=== PATIENT | female | born 1985 | race Caucasian/White ===

== ENCOUNTER 2018-05-22 20:08 | Emergency (ER) | payer SELFPAY ==
--- OUTSIDE RECORDS SUMMARY | 2018-05-22 20:10 | XMS REPORT ---
:1985 [facility] Address [address] [place] [address] [address] [place] [address] Care Team Providers Name Role Phone DR POLA FIGUEROA Unavailable Unavailable ITALIA BRINK Unavailable Unavailable DARIANA, DR LAKHANI Unavailable Unavailable ENTIA, DR MCPHERSON Unavailable Unavailable BA, DR GARAY Unavailable Unavailable MARKO, DR GERARD Unavailable Unavailable , DR GUZMAN Unavailable Unavailable Problems This patient has no known problems. Allergies, Adverse Reactions, Alerts This patient has no known allergies or adverse reactions. Medications This patient has no known medications. Encounters Start End Encounter Admission Attending Care Care Encounter Date/Time Date/Time Type Type Clinicians Facility Department ID 2018-03-29 2018-03-30 Outpatient E [facility] [id number] 19:28:00 23:11:00 POLA 2018-03-12 2018-03-13 Outpatient E [facility] [id number] 22:28:00 01:55:00 ITALIA 2018-03-10 2018-03-10 Emergency E [facility]ES[facility] [id number] 15:09:00 19:50:00 2018-02-23 2018-02-23 Emergency E ALEJA [facility] [id number] 00:26:00 01:22:00 VIDA 2017-12-18 2017-12-18 Emergency E TANISHA [facility] [id number] 19:54:00 22:51:00 2017-10-21 2017-10-21 Emergency E MARKO [facility] [id number] 21:40:00 22:52:00 MOUSTAPHA 2017-05-25 2017-05-25 Emergency E SHEIKH [facility] [id number] 00:07:00 00:56:00 WASIM Results Test Description Test Time Test Comments Text Results Atomic Results Result Comments PROTHROMBIN TIME i-STAT OW 2018-03-30 06:44:00 Test Item Value Reference Range Comments PT (test code=PT1) <10.0 s 10.0-13.0 INR (test code=INR) <0.9 INRH (test code=INRH) SUGGESTED THERAPEUTIC RANGE FOR INR: 2.5 - 3.5 For Patients with Prosthetic Valves or Patients with recurrent Thromboembolic Events 2.0 - 3.[address] CHEST W/ CONTRAST *OW*2018-03-29 22:43:55Examination: Chest CT with contrastLocation code: V1Eawdffsxvi: NoneTechnique:Axial postcontrast contiguous images were obtained through the chest followedby coronal and sagittal reformations. One or more of the following dosereduction techniques were used: Automated exposure control, adjustment of themA and or KV according to patient size, and/or utilization of iterativereconstruction technique.Creatinine 1.0, 82 cc Omnipaque 300Discussion:Clinical history is remarkable for dyspnea. Thyroid gland, trachea, and majorbronchi are within normal limits. There are no pathologically enlarged lymphnodes present within the mediastinum or axilla.No consolidation, effusion, or pneumothorax is appreciated.Fatty infiltration of the liver is present. Cystic changes present involvingthe posterior right lobe segment 7.Small hiatal hernia is present.No lytic or blastic lesions are present within the osseous structures.Impression: 1. No acute cardiopulmonary abnormality.TROPONIN I i-STAT OW2018-03-29 21:45 :00 Test Item Value Reference Range Comments TROPONIN I (test code=A84) 0.000 ng/mL 0.000-0.045 CHEM8+ i-STAT OW2018-03-29 21:34:00 Test Item Value Reference Range Comments SODIUM (test code=RUYB) 141 mmol/L 138-146 POTASSIUM (test code=KI) 4.1 mmol/L 3.5-4.9 CHLORIDE (test code=CLI) 102 mmol/L 98-109 CA IONIZED (test code=ICAI) 1.18 mmol/L 1.12-1.32 GLUCOSE (test code=GLUI) 81 mg/dL 75-100 TCO2 (test code=TCO2) 28 mmol/L 24-29 BUN (test code=BUN1) 18 mg/dL 8-26 CREATININE (test code=CREAI) 1.0 mg/dL 0.6-1.3 ANION GAP (test code=GANG) 17.0 mmol/L URINE OW2018-03-29 20:52:00 Test Item Value Reference Range Comments PREG UR (test code=PGU) NEGATIVE NEGATIVE CBC (INCLUDES AUTOMATED DIFFERENTIAL) *2018-03-29 20:27:00 Test Item Value Reference Range Comments WBC (test code=WBC) 5.4 10\S\3/uL 4.5-11.0 RBC (test code=RBC) 4.65 10\S\6/uL 4.30-5.70 HGB (test code=HBG) 13.3 g/dL 12.0-15.5 HCT (test code=HCT) 40.3 % 35.0-44.0 MCV (test code=MCV) 86.7 fL 81.0-99.0 MCH (test code=MCH) 28.6 pg 27.0-31.0 MCHC (test code=MCHC) 33.0 g/dL 32.0-36.0 RDW (test code=RDW) 12.8 % 11.5-14.5 PLT (test code=PLT) 326 10\S\3/uL 130-400 MPV (test code=MPV) 7.9 fL 9.4-12.4 NEUTROP # (test code=NE#) 2.7 10\S\3/uL 1.6-8.0 LYMPH # (test code=LY#) 2.1 10\S\3/uL 1.1-3.5 MID # (test code=GMID#) 0.6 10\S\3/uL 0.0-1.1 GRA % (test code=GRA%) 50.0 % 35.0-73.0 LYMPH % (test code=GLY%) 39.4 % 20.0-55.0 MID % (test code=GMID%) 10.6 % 0.0-10.0 PROTHROMBIN TIME i-STAT OW2018-03-13 14:07:00 Test Item Value Reference Range Comments PT (test code=PT1) 12.2 s 10.0-13.0 INR (test code=INR) 1.0 INRH (test code=INRH) SUGGESTED THERAPEUTIC RANGE FOR INR: 2.5 - 3.5 For Patients with Prosthetic Valves or Patients with recurrent Thromboembolic Events 2.0 - 3.0 For Most Other Applications CBC (INCLUDES AUTOMATED DIFFERENTIAL) *2018-03-13 14:02:00 Test Item Value Reference Range Comments WBC (test code=WBC) 2.6 10\S\3/uL 4.5-11.0 RBC (test code=RBC) 6.63 10\S\6/uL 4.30-5.70 HGB (test code=HBG) 18.6 g/dL 12.0-15.5 HCT (test code=HCT) 57.3 % 35.0-44.0 MCV (test code=MCV) 86.4 fL 81.0-99.0 MCH (test code=MCH) 28.1 pg 27.0-31.0 MCHC (test code=MCHC) 32.5 g/dL 32.0-36.0 RDW (test code=RDW) 12.6 % 11.5-14.5 PLT (test code=PLT) 117 10\S\3/uL 130-400 MPV (test code=MPV) 8.7 fL 9.4-12.4 NEUTROP # (test code=NE#) 1.0 10\S\3/uL 1.6-8.0 LYMPH # (test code=LY#) 1.3 10\S\3/uL 1.1-3.5 MID # (test code=GMID#) 0.3 10\S\3/uL 0.0-1.1 GRA % (test code=GRA%) 39.8 % 35.0-73.0 LYMPH % (test code=GLY%) 49.0 % 20.0-55.0 MID % (test code=GMID%) 11.2 % 0.0-10.0 U/S VENOUS DOPPLER LT UPPER EXT *OW*2018-03-13 00:30:16AFTER HOURS SERVICE ON: 12:30 AMLeft Upper Extremity Venous Duplex Doppler ExaminationLocation Code N63Zsleqtz: M79.89: OTHER SPECIFIED SOFT TISSUE DISORDERSTechnique: Real- time hernandez scale, Doppler spectral analysis and Doppler colorflow evaluation was performed using a dedicated transducer. Graded compressionwith augmentation were performed. Findings: Upper extremity veins were sampled including the jugular, subclavian, axillary,brachial, basilic and cephalic veins. No echogenic filling defects are seen to suggest deep venous thrombosis. Thereis normal response to compression. There are normal venous waveforms. Impression: No sonographic evidence of DVT in the imaged vessels.U/S [id number] 19:45: 12EXAM: US PELVIS TRANSABDOMINALEXAM: US PELVIS TRANSVAGINALDATE: 03/10/2018 6:04 PM INDICATION: Pelvic pain, concern for ovarian torsion ADDITIONAL INFORMATION: 32-year-old G6 P O5YAJAMYWBTN: None. TECHNIQUE: Multiplanar grayscale and color Doppler ultrasound of the pelviswere obtained:Transabdominally through a distended urinary bladder.Transvaginally postvoid.LOCATION: [id number]: Uterus/ Myometrium:Size: 7.4 x 5.0 x 6.3 cmOrientation: AntevertedEchogenicity: Normal.Masses: None.Cervix: Normal.Endometrium: NormalThickness: 0.9 cmCysts/ Masses: None.Right ovary:Size: 4.4 x 4.2 x 4.0 cmCysts/Masses:There is a hypoechoic cyst with reticulated echogenic structuresinternally measuring 4.0 x 3.6 x 3.3cm.Arterial and Doppler waveforms are demonstratedLeft ovary: Size: 2.9 x 1.8 x 1.9 cmCysts/Masses: None.Arterial and Doppler waveforms are demonstratedAdnexa: Normal. Free fluid: None.Other: None.IMPRESSION:1. Normal Doppler waveforms are demonstrated in each ovary.2. Right ovarian hemorrhagic cyst.CT ABDOMEN AND PELVIS WITH [id number] 17:48:38EXAM: CT ABDOMEN AND PELVIS WITH CONTRASTDATE: 03/10/2018 3:39 PM INDICATION: Abdominal pain ADDITIONAL INFORMATION: None.COMPARISON: None.TECHNIQUE: Volumetric CT acquisition of the abdomen and pelvis after theintravenous administration contrast. Axial, coronal and sagittalreconstructions.Postcontrastphases: Venous and delayed.IV contrast: 98 mL Omnipaque 300Enteric contrast: None.DLP: 1886 mGy -cmLOCATION: [id number]: Lines, tubes and hardware: None.Lower thorax: Clear.Liver: There is a lobulated lesion in the posterior aspect of the right hepaticlobe measures 1.8 x 3.0 cm. It is new compared to 2012.Biliary tree: No intra- or extrahepatic biliary ductal dilation.Gallbladder: Normal. No CT evidence of gallstones.Pancreas: Normal.Spleen: Normal.Adrenals: Normal.Kidneys and ureters: Normal.Bladder: Normal.Reproductive organs: There is a cyst in the right ovary measuring 4.0 x 3.3 cm.Gastrointestinal tract: Normal caliber.Appendix: Normal.Peritoneum and retroperitoneum: No ascites or free air. No other fluidcollection.Lymph nodes: Normal.Vasculature: Normal.Bones: There is moderate levoconvex scoliotic curvature of the lumbar spine.Soft tissues: Normal.IMPRESSION: 1. No acute abnormality2. A lobulated hypodense lesion at the posterior aspect of the right hepaticlobe measuring 3 x 1.8 cm isnew compared to 2012. The lesion hascharacteristics compatible with hepatic cyst. Given that the lesion is new, 3month interval follow up with abdominal ultrasound would be recommended.3. Right ovarian cyst.RECOMMENDATIONS: None.CBC (INCLUDES AUTOMATED DIFFERENTIAL)2018-03-10 16:15:00 Test Item Value Reference Range Comments WBC (test code=WBC) 6.3 10\S\3/uL 4.5-11.0 RBC (test code=RBC) 4.98 10\S\6/uL 4.30-5.70 HGB (test code=HBG) 14.2 g/dL 12.0-15.5 HCT (test code=HCT) 43.4 % 35.0-44.0 MCV (test code=MCV) 87.1 fL 81.0-99.0 MCH (test code=MCH) 28.5 pg 27.0-31.0 MCHC (test code=MCHC) 32.7 g/dL 32.0-36.0 RDW (test code=RDW) 13.1 % 11.5-14.5 PLT (test code=PLT) 273 10\S\3/uL 130-400 MPV (test code=MPV) 10.5 fL 9.4-12.4 NEUTROP # (test code=NE#) 5.1 10\S\3/uL 1.6-8.0 LYMPH # (test code=LY#) 0.7 10\S\3/uL 1.1-3.5 MONOCYTE # (test code=MO#) 0.4 10\S\3/uL 0.0-1.1 EOSINOPH # (test code=EO#) 0.1 10\S\3/uL 0.0-0.7 BASOPHIL # (test code=BA#) 0.0 10\S\3/uL 0.0-0.3 IG # (test code=IG#) 0.02 10\S\3/uL 0.00-0.06 NRBC # (test code=NRBC#) 0.00 10\S\3/uL 0.00-0.01 NEUTROPH % (test code=NE%) 80.4 % 35.0-73.0 LYMPH % (test code=LY%) 11.1 % 20.0-55.0 MONO % (test code=MO%) 7.0 % 2.5-10.0 EOSINOPH % (test code=EO%) 1.0 % 0.0-5.0 BASOPHIL % (test code=BA%) 0.2 % 0.0-2.0 IG % (test code=IG%) 0.3 % 0.0-0.8 NRBC% (test code=NRBC%) 0.0 % 0.0-0.2 MANDIFF (test code=MDIFF) NO NO RBC MORPH (test code=RBCMOR) NORMAL URINALYSIS WITH [id number] 16:02:00 Test Item Value Reference Range Comments COLOR (test code=COLU) YELLOW YELLOW CLARITY (test code=CLA) HAZY CLEAR GLUCOSE UR (test code=UA GLUCOSE) NEGATIVE NEGATIVE BILI UR (test code=BILE) NEGATIVE NEGATIVE KETONES UR (test code=MURIEL) 1+ NEGATIVE SP GRAVITY (test code=SPGR) 1.023 1.005-1.030 PH UR (test code=PH) 6.5 4.5-8.0 PROTEIN UR (test code=PU) NEGATIVE NEGATIVE UROBIL UR (test code=UROQ) 1.0 EU/dL 0.2-1.0 NITRITE UR (test code=NITRITE) NEGATIVE NEGATIVE BLOOD UR (test code=UA BLOOD) NEGATIVE NEGATIVE LEUK ES UR (test code=LEUK) 1+ NEGATIVE WBC UR (test code=UWBC) 5 /HPF 0-5 RBC UR (test code=URBC) 4 /HPF 0-2 EPITH UR (test code=UEPC) MODERATE /LPF FEW BACTERIA UR (test code=UBACT) FEW /HPF NONE CAST UR (test code=CAST) /LPF NONE CRYSTAL UR (test code=CRYU) / LPF NONE MUCUS UR (test code=MUC) / HPF NONE AMORPH UR (test code=OMI) / HPF NONE TRICH UR (test code=UTRICH) /HPF NONE YEAST UR (test code=UY) /HPF NONE SPERM UR (test code=USPERM) /HPF NONE URINE [id number] 15:57:00 Test Item Value Reference Range Comments PREG UR (test code=PGU) NEGATIVE NEGATIVE XR ANKLE RIGHT COMPLETE 3 VIEWS 2018-02-23 01:19:57RIGHT ANKLE RADIOGRAPHS, 3 VIEWSLOCATION: R16.INDICATION: [id number]: Ankle pain.COMPARISON: None.TECHNIQUE: AP, oblique, and lateral radiographs of the right ankle.FINDINGS :There is no acute fracture or dislocation. The joint spaces are maintained.IMPRESSION:No acute osseous abnormality.U/S VENOUS DOPPLER LT UPPER EXT2017-12-18 22:41:35EXAM: U/S VENOUS DOPPLER LT UPPER EXTHISTORY: [id number]: Arm swellingTECHNIQUE: Multiplanar real-time ultrasonography of the left upper extremityvenous system using hernandez-scale imaging, supplementedby Doppler, augmentation,and compression maneuvers as needed.COMPARISON: None.FINDINGS: Internal jugular vein: PatentSubclavian vein: Patent Axillary vein: PatentBrachial vein: PatentCephalic vein: PatentBasilic vein: Patent and compressibleRadial vein: PatentUlnar vein: PatentVenous compressibility: NormalWaveform response to augmentation: NormalIMPRESSION:No evidence of deep vein thrombosisD-DIMER 2017-12-18 20:54:00 Test Item Value Reference Range Comments D-DIMER (test code=DDI) <200 ng/mL D-DU 0-234 D-DIMER COMMENT (test *Level to rule out DVT or PE: code=DDCOM) <235 ng/mL D-DU* PRO TIME AND PTT *WW*2017-12-18 20:49:00 Test Item Value Reference Range Comments PT (test code=TT) 11.2 s 9.8-13.6 INR (test code=INR) 1.0 INRH (test code=INRH) SUGGESTED THERAPEUTIC RANGE FOR INR: 2.5 - 3.5 For Patients with Prosthetic Valves or Patients with recurrent Thromboembolic Events 2.0 - 3.0 For Most Other Applications PTT (test code=PTT) 27.3 s 20.2-38.0 PTTH (test code=PTTH) To monitor the effectiveness of heparin, we offer the Anti-Xa (Heparin Assay). It can be used for either unfractionated or LMW Heparin. Order Code is ANTI-XA COMPREHENSIVE METABOLIC TOMLIN *WW*2017-12-18 20:40:00 Test Item Value Reference Range Comments GLUCOSE (test code=06D) 94 mg/dL 75-100 SODIUM (test code=01A) 138 mmol/L 136-145 POTASSIUM (test code=01B) 3.8 mmol/L 3.6-5.1 CHLORIDE (test code=04A) 104 mmol/L 98-107 CO2 (test code=02A) 28 mmol/L 22-32 ANION GAP (test code=ANG) 9.8 mmol/L BUN (test code=05D) 17 mg/dL 7-18 CREATININE (test code=03E) 0.9 mg/dL 0.4-1.1 BUN/CREA (test code=BCR) 19 12-20 CALCIUM (test code=09D) 8.7 mg/dL 8.3-9.5 BILI TOTAL (test code=11A) 0.2 mg/dL 0.2-1.0 PROTEIN (test code=07D) 8.0 g/dL 6.4-8.2 ALBUMIN (test code=08D) 4.2 g/dL 3.5-4.8 GLOBULIN (test code=GLB) 3.8 g/dL 1.5-3.8 ALB/GLOB (test code=AGRR) 1.1 1.0-2.6 ALK PHOS (test code=35A) 79 IU/L 42-121 AST (test code=30A) 14 IU/L <=42 ALT (test code=31A) 20 IU/L <=78 CBC (INCLUDES AUTOMATED DIFFERENTIAL)*[id number] 20:25:00 Test Item Value Reference Range Comments WBC (test code=WBC) 7.8 10\S\3/uL 4.5-11.0 RBC (test code=RBC) 4.30 10\S\6/uL 4.30-5.70 HGB (test code=HBG) 12.4 g/dL 12.0-15.5 HCT (test code=HCT) 38.1 % 35.0-44.0 MCV (test code=MCV) 88.6 fL 81.0-99.0 MCH (test code=MCH) 28.8 pg 27.0-31.0 MCHC (test code=MCHC) 32.5 g/dL 32.0-36.0 RDW (test code=RDW) 13.4 % 11.5-14.5 PLT (test code=PLT) 275 10\S\3/uL 130-400 MPV (test code=MPV) 10.7 fL 9.4-12.4 NEUTROP # (test code=NE#) 4.8 10\S\3/uL 1.6-8.0 LYMPH # (test code=LY#) 2.0 10\S\3/uL 1.1-3.5 MONOCYTE # (test code=MO#) 0.7 10\S\3/uL 0.0-1.1 EOSINOPH # (test code=EO#) 0.2 10\S\3/uL 0.0-0.7 BASOPHIL # (test code=BA#) 0.1 10\S\3/uL 0.0-0.3 IG # (test code=IG#) 0.02 10\S\3/uL 0.00-0.06 NRBC # (test code=NRBC#) 0.00 10\S\3/uL 0.00-0.01 NEUTROPH % (test code=NE%) 61.7 % 35.0-73.0 LYMPH % (test code=LY%) 25.7 % 20.0-55.0 MONO % (test code=MO%) 8.6 % 2.5-10.0 EOSINOPH % (test code=EO%) 3.1 % 0.0-5.0 BASOPHIL % (test code=BA%) 0.6 % 0.0-2.0 IG % (test code=IG%) 0.3 % 0.0-0.8 NRBC% (test code=NRBC%) 0.0 % 0.0-0.2 MANDIFF (test code=WMDIFF) NO NO RBC MORPH (test code=WRBCMOR) NORMAL XR FOOT LEFT COMPLETE 3 [id number] 22:21:34XR FOOT LEFT COMPLETE 3 VIEWSLocation:O55Qlgyo hours services provided10/21/2017 10:20 PMIndication: Lfoot pain; fellComparison:Not availableFindings:Mild calcaneal spurring. No acute fracture or dislocation is seen. Thejoint spaces appear preserved. Bony mineralization appears normal. Noradiopaque foreign body.Impression:No acute bony abnormality.XR CHEST 2 VIEW *WW*2017-01-22 00:15:12Exam: Chest 2 viewsLocation: [id number]: cough ans sobComparison: NoneFindings:The lungs are clear. No infiltrate or effusion is seen. The pulmonaryvasculature is normal. The heart size is normal. The mediastinal silhouette isunremarkable. The bony thorax is intact with a dextroscoliosis noted.Impression:No acute disease.
--- OUTSIDE RECORDS SUMMARY | 2018-05-22 20:10 | XMS REPORT | Clinical Summary ---
:1985 Author Organization [facility] Address [address] [place] [address] Care Team Providers Name Role Phone Mignon Hancock DO Primary Care Provider Allergies Active Allergy Reactions Severity Noted Date Comments Azithromycin 03/16/2018 Hydromorphone Itching 03/16/2018 Current Medications Prescription Sig. Disp. Refills Start Date End Date Status acetaminophen-codeine Take 1 tablet by 12 tablet 0 03/17/2018 03/24/2018 (TYLENOL WITH CODEINE mouth every 6 #3) 300-30 mg per (six) hours as tablet needed for moderate pain for up to 7 days. Active Problems Not on file Encounters Date Type Specialty Care Team Description 03/16/2018 - Emergency Emergency Medicine Madhuri Hernandez Contusion of left 03/17/2018 DO Araceli upper extremity, initial encounter (Primary Dx) after 05/21/2017 Social History Tobacco Use Types Packs/Day Years Used Date Never Smoker Smokeless Tobacco: Never Used Alcohol Use Drinks/Week oz/Week Comments Yes socially Sex Assigned at Date Recorded Not on file Last Filed Vital Signs Vital Sign Reading Time Taken Blood Pressure 122/87 03/17/2018 1:07 AM CDT Pulse 85 03/17/2018 1:07 AM CDT Temperature 35.7 C (96.2 F) 03/16/2018 10:31 PM CDT Respiratory Rate 16 03/17/2018 1:07 AM CDT Oxygen Saturation 99% 03/17/2018 1:07 AM CDT Inhaled Oxygen Concentration - - Weight - - Height 167.6 cm (5' 6") 03/16/2018 10:20 PM CDT Body Mass Index - - Plan of Treatment Health Maintenance Due Date Last Done Comments CERVICAL CANCER SCREENING 2005 INFLUENZA VACCINE 05/07/2018 Procedures Procedure Name Priority Date/Time Associated Diagnosis Comments DUPLEX VENOUS STAT 03/17/2018 12:18 AM Results for this UPPER EXTREMITY CDT procedure are in LEFT the results section. after 05/21/2017 Results PV Duplex Venous Upper Extremity (03/17/2018 12:18 AM) Narrative Performed At US DUPLEX VENOUS UPPER EXTREMITY LEFT [facility] CLINICAL INDICATION:lue bruisingupper arm and ac spacefrom iv's...now with pain worsening COMPARISON:None. COMMENTS: Sonographic evaluation of the left upper extremity was performed utilizing compression sonography and color Doppler interrogation. The left internal jugular vein, subclavian vein, axillary vein, brachial veins, basilic vein and cephalic vein are normal in course and caliber with normal color Doppler signal. There is normal compressibility of these vessels and flow variation where interrogated. Visualized veins in the forearm are unremarkable without thrombosis. The contralateral subclavian vein was also interrogated and demonstrates appropriate Doppler signal. There is an ill-defined echogenic area within the soft tissues in the area of bruising that measures 2.1 x 0.8 x 1.5 cm in size. This most likely represents a small, subcutaneous hematoma. IMPRESSION: 1. No sonographic evidence of deep venous thrombosis in the left upper extremity. 2. Ill-defined echogenic area within the region of bruising, measuring 2.1 x 0.8 x 1.5 cm in size and likely representing a small subcutaneous hematoma. [facility]-[id number] Procedure Note Interface, Radiology Results Incoming - 03/17/2018 12:25 AM CDT US DUPLEX VENOUS UPPER EXTREMITY LEFT CLINICAL INDICATION: lue bruising upper arm and ac space from iv's...now with pain worsening COMPARISON: None. COMMENTS: Sonographic evaluation of the left upper extremity was performed utilizing compression sonography and color Doppler interrogation. The left internal jugular vein, subclavian vein, axillary vein, brachial veins , basilic vein and cephalic vein are normal in course and caliber with normal color Doppler signal. There is normal compressibility of these vessels and flow variation where interrogated. Visualized veins in the forearm are unremarkable without thrombosis. The contralateral subclavian vein was also interrogated and demonstrates appropriate Doppler signal. There is an ill-defined echogenic area within the soft tissues in the area of bruising that measures 2.1 x 0.8 x 1.5 cm in size. This most likely represents a small, subcutaneous hematoma. IMPRESSION: 1. No sonographic evidence of deep venous thrombosis in the left upper extremity. 2. Ill-defined echogenic area within the region of bruising, measuring 2.1 x 0.8 x 1.5 cm in size and likely representing a small subcutaneous hematoma. [facility]-[id number] Performing Organization Address City/State/Zipcode Phone Number [facility] [address] [place] [address] after 05/21/2017
[2018-05-22] MEDS ORDERED: HYDROCOD 2.5mg-ACETAMIN 108mg/5mL Soln ONE (21:45)
[2018-05-22] MEDS ORDERED: IBUPROFEN 400 MG TAB ONE (21:46)
[2018-05-22 22:06] LABS: Urine Blood NEGATIVE (NEG); Urine Glucose NEGATIVE (NEG); Urine Protein NEGATIVE (NEG); Urine Specific Gravity >1.030 (1.005-1.030); Urine pH 5.5 (5.0-7.0)
--- NOTE | 2018-05-22 22:37 | ER ---
Nurse's Notes [facility] Name: Natali Sheridan Age: 32 yrs Sex: Female : 1985 Arrival Date: 05/22/2018 Time: 20:08 Bed 19 Private MD: Diagnosis: Otitis media, unspecified, left ear Presentation: 05/22 20:15 Presenting complaint: Patient states: Left ear pain for 3 days. Transition of care: aj patient was not received from another setting of care. Onset of symptoms was May 19, 2018. Risk Assessment: Do you want to hurt yourself or someone else? Patient reports no desire to harm self or others. Initial Sepsis Screen: Does the patient meet any 2 criteria? No. Patient's initial sepsis screen is negative. Does the patient have a suspected source of infection? No. Patient's initial sepsis screen is negative. Care prior to arrival: None. 20:15 Method Of Arrival: Ambulatory 20:15 Acuity: DANIELE 4 20:15 Acuity: DANIELE 5 Triage Assessment: 20:17 General: Appears in no apparent distress. comfortable, Behavior is calm, cooperative, aj appropriate for age. Pain: Complains of pain in left ear. EENT: Reports pain in left ear. Neuro: Level of Consciousness is awake, alert, obeys commands, Oriented to person, place, time, situation, Appropriate for age. Respiratory: Airway is patent Respiratory effort is even, unlabored, Respiratory pattern is regular, symmetrical. Derm: Skin is intact, is healthy with good turgor, Skin is pink, warm \T\ dry. normal. 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 - Social history:: Smoking status: Patient/guardian denies using tobacco. - Ebola Screening: : Patient negative for fever greater than or equal to 101.5 degrees Fahrenheit, and additional compatible Ebola Virus Disease symptoms Patient denies exposure to infectious person Patient denies travel to an Ebola-affected area in the 21 days before illness onset No symptoms or risks identified at this time. Screenin:48 Abuse screen: Denies threats or abuse. Denies injuries from another. Nutritional bs1 screening: No deficits noted. Tuberculosis screening: No symptoms or risk factors identified. Fall Risk None identified. Assessment: 20:25 General: Appears in no apparent distress. uncomfortable, Behavior is calm, cooperative, bs1 appropriate for age. Pain: Complains of pain in left ear, throat. Neuro: Level of Consciousness is awake, alert, obeys commands, Oriented to person, place, time, situation, Appropriate for age. Cardiovascular: Heart tones S1 S2 present. Respiratory: Airway is patent. GI: No signs and/or symptoms were reported involving the gastrointestinal system. : No signs and/or symptoms were reported regarding the genitourinary system. EENT: Ear canal mild redness noted to left ear, patient reports pain to left ear. Throat is reddened. 21:30 Reassessment: Patient appears in no apparent distress at this time. Patient and/or bs1 family updated on plan of care and expected duration. Pain level reassessed. Patient is alert, oriented x 3, equal unlabored respirations, skin warm/dry/pink. Patient c/o pain in throat/ear. 22:55 Reassessment: Patient appears in no apparent distress at this time. Patient and/or bs1 family updated on plan of care and expected duration. Pain level reassessed. Patient is alert, oriented x 3, equal unlabored respirations, skin warm/dry/pink. Patient received Augmentin 875, discharge papers given. Informed patient that we will keep her here for about 15 more minutes to make sure she does not have a reaction to medication. 23:18 Reassessment: No reaction occurred. bs1 Vital Signs: 20:17 BP 140 / 88; Pulse 95; Resp 16; Temp 98.2; Pulse Ox 96% on R/A; Weight 90.72 kg; Height aj 5 ft. 6 in. (167.64 cm); 21:17 BP 156 / 90; Pulse 81; Resp 16 S; Pulse Ox 98% on R/A; bs1 22:17 BP 148 / 88; Pulse 80; Resp 16; Pulse Ox 100% on R/A; bs1 23:17 BP 130 / 94; Pulse 81; Resp 16; Temp 98.0(O); Pulse Ox 99% on R/A; Pain 4/10; bs1 20:17 Body Mass Index 32.28 (90.72 kg, 167.64 cm) armen ED Course: 20:08 Patient arrived in ED. ds1 20:16 Triage completed. aj 20:17 Arm band placed on right wrist. Patient placed in an exam room. aj 20:26 Corrine Diana, LEXIE is Primary Nurse. bs1 20:48 Patient has correct armband on for positive identification. Bed in low position. Call bs1 light in reach. Side rails up X 1. Pulse ox on. NIBP on. 21:18 Suraj Villalta PA is PHCP. cp 21:18 Suraj Garza MD is Attending Physician. cp 22:59 No provider procedures requiring assistance completed. Patient did not have IV access bs1 during this emergency room visit. Administered Medications: 22:12 Drug: Ibuprofen 800 mg Route: PO; bs1 23:18 Follow up: Response: No adverse reaction bs1 22:12 Drug: Lortab Liquid 15 ml Route: PO; bs1 23:18 Follow up: Response: No adverse reaction bs1 22:56 Drug: Augmentin 875 mg Route: PO; bs1 23:18 Follow up: Response: No adverse reaction bs1 Outcome: 22:36 Discharge ordered by MD. cp 23:19 Patient left the ED. bs1 Signatures: Lisa Knight, RN RN Nishi Kerns ds1 Suraj Villalta PA PA Corrine Morrison, LEXIE RN bs1
--- NOTE | 2018-05-22 22:37 | EDPHYS ---
Physician Documentation [facility] Name: Natali Sheridan Age: 32 yrs Sex: Female : 1985 Arrival Date: 05/22/2018 Time: 20:08 Bed 19 Private MD: ED Physician Suraj Garza HPI: 05/22 21:25 This 32 yrs old Female presents to ER via Ambulatory with complaints of Ear cp Pain, Sore Throat. 21:25 The patient presents with pain, that is acute, tenderness. The complaints affect the cp left ear. 21:25 Onset: The symptoms/episode began/occurred 3 day(s) ago. cp 21:25 Associated signs and symptoms: Pertinent positives: sore throat, Pertinent negatives: cp cough, fever, sinus trouble, vomiting. Severity of symptoms: in the emergency department the symptoms are unchanged despite home interventions. 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 - Social history:: Smoking status: Patient/guardian denies using tobacco. - Ebola Screening: : Patient negative for fever greater than or equal to 101.5 degrees Fahrenheit, and additional compatible Ebola Virus Disease symptoms Patient denies exposure to infectious person Patient denies travel to an Ebola-affected area in the 21 days before illness onset No symptoms or risks identified at this time. ROS: 21:30 Constitutional: Negative for body aches, chills, fever, poor PO intake. cp 21:30 Eyes: Negative for injury, pain, redness, and discharge. cp 21:30 ENT: Positive for ear pain, sore throat, Negative for drainage from ear(s), sinus pain, difficulty swallowing, difficulty handling secretions. 21:30 Neck: Negative for pain with movement, pain at rest, stiffness. 21:30 Cardiovascular: Negative for chest pain. 21:30 Respiratory: Negative for cough, shortness of breath, wheezing. 21:30 Abdomen/GI: Negative for abdominal pain, nausea, vomiting, and diarrhea. 21:30 Skin: Negative for cellulitis, rash. 21:30 Neuro: Negative for altered mental status, headache, weakness. 21:30 All other systems are negative. Exam: 21:35 Constitutional: The patient appears in no acute distress, alert, awake, non-toxic, well cp developed, well nourished, uncomfortable. 21:35 Head/Face: Normocephalic, atraumatic. cp 21:35 Eyes: Periorbital structures: appear normal, Pupils: equal, round, and reactive to light and accomodation, Extraocular movements: intact throughout, Conjunctiva: normal, no exudate, no injection, Sclera: no appreciated abnormality, Lids and lashes: appear normal, bilaterally. 21:35 ENT: External ear(s): are unremarkable, Ear canal(s): are normal, clear, TM's: erythema, that is mild, on the left, Examination of the other ear shows no obvious abnormality, Nose: is normal, Mouth: is normal, Posterior pharynx: Airway: normal, Tonsils: with erythema, no enlargement, no exudate, Uvula: midline, swelling, is not appreciated, erythema, that is mild, exudate, is not appreciated, Voice: is normal. 21:35 Neck: ROM/movement: is normal, is supple, without pain, no range of motions limitations, no meningismus, no nuchal rigidity, Lymph nodes: lymphadenopathy is appreciated, anterior cervical nodes. 21:35 Chest/axilla: Inspection: normal, Palpation: is normal, no crepitus, no tenderness. 21:35 Cardiovascular: Rate: normal, Rhythm: regular. 21:35 Respiratory: the patient does not display signs of respiratory distress, Respirations: normal, no use of accessory muscles, no retractions, no splinting, no tachypnea, labored breathing, is not present, Breath sounds: are clear throughout, no decreased breath sounds, no stridor, no wheezing. 21:35 Abdomen/GI: Exam negative for discomfort, distension, guarding, Inspection: abdomen appears normal. 21:35 Skin: cellulitis, is not appreciated, no rash present. 21:35 Neuro: Orientation: to person, place \T\ time. Mentation: lucid, able to follow commands, Cerebellar function: is grossly normal, Motor: moves all fours, strength is normal, Sensation: no obvious gross deficits. Vital Signs: 20:17 BP 140 / 88; Pulse 95; Resp 16; Temp 98.2; Pulse Ox 96% on R/A; Weight 90.72 kg; Height aj 5 ft. 6 in. (167.64 cm); 21:17 BP 156 / 90; Pulse 81; Resp 16 S; Pulse Ox 98% on R/A; bs1 22:17 BP 148 / 88; Pulse 80; Resp 16; Pulse Ox 100% on R/A; bs1 23:17 BP 130 / 94; Pulse 81; Resp 16; Temp 98.0(O); Pulse Ox 99% on R/A; Pain 4/10; bs1 20:17 Body Mass Index 32.28 (90.72 kg, 167.64 cm) aj MDM: 21:19 Patient medically screened. cp 22:00 Differential diagnosis: otitis media, otitis externa, ruptured TM, acute otalgia, cp cerumen impaction, strep throat. 22:35 Data reviewed: vital signs, nurses notes, lab test result(s), and as a result, I will cp discharge patient. 22:35 Counseling: I had a detailed discussion with the patient and/or guardian regarding: the cp historical points, exam findings, and any diagnostic results supporting the discharge/admit diagnosis, lab results, to return to the emergency department if symptoms worsen or persist or if there are any questions or concerns that arise at home. Response to treatment: the patient's symptoms have markedly improved after treatment, and as a result, I will discharge patient. 05/22 21:23 Order name: Strep; Complete Time: 22:34 05/22 21:58 Order name: Throat Culture EDNE 05/22 22:00 Order name: Urine Dipstick--Ancillary (enter results); Complete Time: 22:34 mi 05/22 22:34 Interpretation: Normal except: USPGR >1.030; UKET 1+. 05/22 21:26 Order name: Urine Test (obtain specimen); Complete Time: 22:03 cp 05/22 21:26 Order name: Urine Dipstick-Ancillary (obtain specimen); Complete Time: 22:03 cp Administered Medications: 22:12 Drug: Ibuprofen 800 mg Route: PO; bs1 23:18 Follow up: Response: No adverse reaction bs1 22:12 Drug: Lortab Liquid 15 ml Route: PO; bs1 23:18 Follow up: Response: No adverse reaction bs1 22:56 Drug: Augmentin 875 mg Route: PO; bs1 23:18 Follow up: Response: No adverse reaction bs1 Disposition: 05/23 07:26 Co-signature as Attending Physician, Suraj Garza MD I agree with the assessment and [facility] plan of care. Disposition: 05/22/18 22:36 Discharged to Home. Impression: Otitis media, unspecified, left ear. - Condition is Stable. - Discharge Instructions: Otitis Media, Adult. - Prescriptions for Naprosyn 500 mg Oral Tablet - take 1 tablet by ORAL route 2 times per day take with food; 20 tablet. Tylenol- Codeine #3 300-30 mg Oral Tablet - take 2 tablets by ORAL route every 6 hours As needed; 15 tablet. Augmentin 875- 125 mg Oral Tablet - take 1 tablet by ORAL route every 12 hours for 10 days; 20 tablet. - Medication Reconciliation Form, Thank You Letter, Antibiotic Education, Prescription Opioid Use, Work release form form. - Follow up: Private Physician; When: 1 - 2 days; Reason: Recheck today's complaints. - Problem is new. - Symptoms have improved. Signatures: Dispatcher [employer] EDMS Lisa Knight RN Suraj Cochran MD MD cha Page, Corey, PA PA Corrine Morrison, RN RN bs1 Corrections: (The following items were deleted from the chart) 05/22 23:19 22:36 05/22/2018 22:36 Discharged to Home. Impression: Otitis media, unspecified, left bs1 ear. Condition is Stable. Forms are Medication Reconciliation Form, Thank You Letter, Antibiotic Education, Prescription Opioid Use. Follow up: Private Physician; When: 1 - 2 days; Reason: Recheck today's complaints. Problem is new. Symptoms have improved. cp
[2018-05-22] MEDS ORDERED: AMOX/K CLAV 875 MG TAB ONE (22:57)
[2018-05-23 00:29] VITALS: BP 130/94; TEMP 98; O2SAT 99
== END 2018-05-22 23:19 | disposition home or self-care (01) ==
LOC: ER 20:08
DX: H66.92 Otitis media, unspecified, left ear (principal); I10 Essential (primary) hypertension; Z88.3 Allergy status to other anti-infective agents
CPT/HCPCS: 81003; 87070; 87081; 99283

== ENCOUNTER 2018-05-24 11:59 | Emergency (ER) | payer SELFPAY ==
--- OUTSIDE RECORDS SUMMARY | 2018-05-24 12:01 | XMS REPORT | Clinical Summary ---
:1985 Author Organization [facility] Address [address] [place] [address] Care Team Providers Name Role Phone Mignon [...] upper extremity, initial encounter (Primary Dx) after 05/23/2017 Social History Tobacco Use Types Packs/Day Years [...] are in LEFT the results section. after 05/23/2017 Results PV Duplex Venous Upper Extremity (03/17/2018 [...] and likely representing a small subcutaneous hematoma. [facility]-[id number] Procedure Note Interface, Radiology Results Incoming - [...] and likely representing a small subcutaneous hematoma. [facility]-[id number] Performing Organization Address City/State/Zipcode Phone Number [facility] [address] [place] [address] after 05/23/2017
--- OUTSIDE RECORDS SUMMARY | 2018-05-24 12:01 | XMS REPORT ---
:1985 [facility] Address [address] [place] [address] [address] [place] [address] Care Team Providers Name Role Phone HENRY, DR POLA UMANA Unavailable Unavailable ITALIA BRINK Unavailable Unavailable DARIANA, DR LAKHANI Unavailable Unavailable ENTIA, DR MCPHERSON Unavailable Unavailable BA, DR GARAY Unavailable Unavailable MARKO, DR GERARD Unavailable Unavailable RICCI, DR GUZMAN Unavailable Unavailable Problems This patient has no known problems. Allergies, Adverse Reactions, Alerts This patient has no known allergies or adverse reactions. Medications This patient has no known medications. Encounters Start End Encounter Admission Attending Care Care Encounter Date/Time Date/Time Type Type Clinicians Facility Department ID 2018-03-29 2018-03-30 Outpatient E HENRY [facility] [id number] 19:28:00 23:11:00 POLA 2018-03-12 2018-03-13 Outpatient E KEENA [facility] [id number] 22:28:00 01:55:00 ITALIA 2018-03-10 2018-03-10 Emergency E LESVIA [facility] [id number] 15:09:00 19:50:00 2018-02-23 2018-02-23 Emergency E ALEJA [facility] [id number] 00:26:00 01:22:00 VIDA 2017-12-18 2017-12-18 Emergency E TANISHA GONZALEZ [facility] [id number] 19:54:00 22:51:00 2017-10-21 2017-10-21 Emergency E MARKO [facility] [id number] 21:40:00 22:52:00 MOUSTAPHA 2017-05-25 2017-05-25 Emergency E SHEIKH [facility] [id number] 00:07:00 00:56:00 WASIM Results Test Description Test [...] *OW*2018-03-29 22:43:55Examination: Chest CT with contrastLocation code: [id number]: NoneTechnique:Axial postcontrast contiguous images were obtained through [...] Item Value Reference Range Comments SODIUM (test code=RUBY) 141 mmol/L 138-146 POTASSIUM (test code=KI) 4.1 [...] Upper Extremity Venous Duplex Doppler ExaminationLocation Code [id number]: M79.89: OTHER SPECIFIED SOFT TISSUE DISORDERSTechnique: Real- [...] evidence of DVT in the imaged vessels.U/S [id number] 19:45: 12EXAM: US PELVIS TRANSABDOMINALEXAM: US PELVIS TRANSVAGINALDATE: 03/10/2018 6:04 PM INDICATION: Pelvic pain, concern for ovarian torsion ADDITIONAL INFORMATION: 32-year-old G6 P [id number]: None. TECHNIQUE: Multiplanar grayscale and color Doppler ultrasound of the pelviswere obtained:Transabdominally through a distended urinary bladder.Transvaginally postvoid.LOCATION: [id number]: Uterus/ Myometrium:Size: 7.4 x 5.0 x 6.3 [...] ovarian hemorrhagic cyst.CT ABDOMEN AND PELVIS WITH [id number] 17:48:38EXAM: CT ABDOMEN AND PELVIS WITH CONTRASTDATE: 03/10/2018 3:39 PM INDICATION: Abdominal pain ADDITIONAL INFORMATION: None.COMPARISON: None.TECHNIQUE: Volumetric CT acquisition of the abdomen and pelvis after theintravenous administration contrast. Axial, coronal and sagittalreconstructions.Postcontrastphases: Venous and delayed.IV contrast: 98 mL Omnipaque 300Enteric contrast: None.DLP: 1886 mGy -cmLOCATION: [id number]: Lines, tubes and hardware: None.Lower thorax: Clear.Liver: [...] RBC MORPH (test code=RBCMOR) NORMAL URINALYSIS WITH [id number] 16:02:00 Test Item Value Reference Range Comments [...] SPERM UR (test code=USPERM) /HPF NONE URINE [id number] 15:57:00 Test Item Value Reference Range Comments PREG UR (test code=PGU) NEGATIVE NEGATIVE XR ANKLE RIGHT COMPLETE 3 VIEWS 2018-02-23 01:19:57RIGHT ANKLE RADIOGRAPHS, 3 VIEWSLOCATION: R16.INDICATION: [id number]: Ankle pain.COMPARISON: None.TECHNIQUE: AP, oblique, and lateral radiographs of the right ankle.FINDINGS :There is no acute fracture or dislocation. The joint spaces are maintained.IMPRESSION:No acute osseous abnormality.U/S VENOUS DOPPLER LT UPPER EXT2017-12-18 22:41:35EXAM: U/S VENOUS DOPPLER LT UPPER EXTHISTORY: [id number]: Arm swellingTECHNIQUE: Multiplanar real-time ultrasonography of the [...] code=31A) 20 IU/L <=78 CBC (INCLUDES AUTOMATED DIFFERENTIAL)*[id number] 20:25:00 Test Item Value Reference Range Comments [...] code=WRBCMOR) NORMAL XR FOOT LEFT COMPLETE 3 [id number] 22:21:34XR FOOT LEFT COMPLETE 3 VIEWSLocation:G38Rrrlc hours services provided10/21/2017 10:20 PMIndication: Lfoot pain; fellComparison:Not availableFindings:Mild calcaneal spurring. No acute fracture or dislocation is seen. Thejoint spaces appear preserved. Bony mineralization appears normal. Noradiopaque foreign body.Impression:No acute bony abnormality.XR CHEST 2 VIEW *WW*2017-01-22 00:15:12Exam: Chest 2 viewsLocation: [id number]: cough ans sobComparison: NoneFindings:The lungs are clear. No infiltrate or effusion is seen. The pulmonaryvasculature is normal. The heart size is normal. The mediastinal silhouette isunremarkable. The bony thorax is intact with a dextroscoliosis noted.Impression:No acute disease.
[2018-05-24] MEDS ORDERED: KETOROLAC 30 MG/ML INJ ONE (12:36)
[2018-05-24 13:14] LABS: Urine Blood NEGATIVE (NEG); Urine Glucose NEGATIVE (NEG); Urine Protein TRACE (NEG)
--- NOTE | 2018-05-24 13:18 | RAD REPORT ---
EXAM DESCRIPTION: RAD - Neck Soft Tissue - 05/24/2018 1:01 pm CLINICAL HISTORY: Dysphasia FINDINGS: The prevertebral soft tissues appear normal. A definite radiopaque foreign body is not seen. No gross abnormality of the airway is noted.
[2018-05-24] MEDS ORDERED: MAGNE/ALUM HYDROXD 30 ML UCUP ONE (14:18)
[2018-05-24] MEDS ORDERED: LIDOCAINE VISCOUS 2% SOLN 15 ML UDC ONE (14:18)
--- NOTE | 2018-05-24 14:37 | ER ---
Nurse's Notes [facility] Name: Natali Sheridan Age: 32 yrs Sex: Female : 1985 Arrival Date: 05/24/2018 Time: 12:01 Bed 18 Private MD: None, None Diagnosis: Pain in throat;Otitis media, unspecified, left ear Presentation: 05/24 12:05 Presenting complaint: Patient states: "I was here about 3 days ago and was given aa5 Augmentin for an ear infection and my strep came back negative that time but my throat still hurts and I really feel like there is something stuck in my esophagus". Pt states "I can't even swallow mashed potatoes or Jello without crying". Pt states "I haven't eaten in about 2 days". 12:05 Transition of care: patient was not received from another setting of care. Onset of aa5 symptoms was May 2018. 12:05 Method Of Arrival: Ambulatory aa5 12:05 Risk Assessment: Do you want to hurt yourself or someone else? Patient reports no aa5 desire to harm self or others. Initial Sepsis Screen: Does the patient meet any 2 criteria? No. Patient's initial sepsis screen is negative. Does the patient have a suspected source of infection? No. Patient's initial sepsis screen is negative. Care prior to arrival: None. 12:05 Acuity: DANIELE 3 aa5 DIRECTOR [facility]: 12:23 LMP 05/20/2018 em Historical: - Allergies: 12:10 Erythromycin; aa5 - PMHx: 12:10 Hypertension; aa5 - PSHx: 12:10 None; aa5 - Immunization history:: Adult Immunizations up to date. - Ebola Screening: : No symptoms or risks identified at this time. - Social history:: Smoking status: Patient/guardian denies using tobacco. Screenin:25 Abuse screen: Denies threats or abuse. Nutritional screening: No deficits noted. em Tuberculosis screening: No symptoms or risk factors identified. Fall Risk None identified. Assessment: 12:20 General: Appears uncomfortable, Behavior is cooperative, anxious. Pain: Pain currently em is 10 out of 10 on a pain scale. Neuro: Level of Consciousness is awake, alert, obeys commands, Oriented to person, place, time, situation. Cardiovascular: Capillary refill < 3 seconds Patient's skin is warm and dry. Respiratory: Airway is patent Respiratory effort is even, unlabored, Respiratory pattern is regular, symmetrical, Breath sounds are clear bilaterally. GI: Abdomen is flat, Reports nausea, Patient currently denies vomiting. : No signs and/or symptoms were reported regarding the genitourinary system. EENT: Throat is clear is pink Reports difficulty swallowing pain when swallowing. Derm: Skin is intact, Skin is pink, warm \\T\\ dry. Musculoskeletal: Range of motion: intact in all extremities. 12:20 Reassessment: I agree with assessment completed by Trenton Mathews LVN . aa5 13:09 Reassessment: Patient appears in no apparent distress at this time. Patient and/or em family updated on plan of care and expected duration. Pain level reassessed. Patient is alert, oriented x 3, equal unlabored respirations, skin warm/dry/pink. reports pain medication has not worked, "feels like I'm swallowing glass" DARRELL Mancini notified, no new orders received. 14:00 Reassessment: Patient appears in no apparent distress at this time. Patient and/or em family updated on plan of care and expected duration. Pain level reassessed. Patient is alert, oriented x 3, equal unlabored respirations, skin warm/dry/pink. Patient states feeling better. 15:07 Reassessment: Patient appears in no apparent distress at this time. Patient and/or em family updated on plan of care and expected duration. Pain level reassessed. Patient is alert, oriented x 3, equal unlabored respirations, skin warm/dry/pink. Patient states feeling better. Vital Signs: 12:06 BP 157 / 101; Pulse 85; Resp 16 S; Temp 98.8(O); Pulse Ox 97% on R/A; aa5 13:10 BP 147 / 93; Pulse 78; Resp 16; Pulse Ox 97% on R/A; em 15:07 BP 144 / 97; Pulse 75; Resp 16; Pulse Ox 98% on R/A; Pain 6/10; em ED Course: 12:01 Patient arrived in ED. mr 12:01 None, None is Private Physician. mr 12:03 Arm band placed on Patient placed in an exam room, on a stretcher. aa5 12:07 Twyla Huddleston FNP-C is [facility]. kb 12:07 El Nails MD is Attending Physician. kb 12:09 Trenton Mathews LVN is Primary Nurse. em 12:13 Triage completed. aa5 12:24 Patient has correct armband on for positive identification. Bed in low position. Call em light in reach. Adult w/ patient. 12:47 X-ray completed. Portable x-ray completed in exam room. Patient tolerated procedure la2 well. 13:01 Neck Soft Tissue XRAY In Process Unspecified. EDMS 13:10 No provider procedures requiring assistance completed. em 15:06 Patient did not have IV access during this emergency room visit. em Administered Medications: 12:37 Drug: TORadol 60 mg Route: IM; Site: right gluteus; em 15:08 Follow up: Response: No adverse reaction; Pain is decreased em 14:21 Drug: GI Cocktail without - (Maalox Suspension 30 ml, Lidocaine Liquid 2 % 15 em ml) Route: PO; 15:08 Follow up: Response: No adverse reaction; Pain is decreased em Outcome: 14:37 Discharge ordered by MD. kb 15:06 Discharged to home ambulatory, with family. em 15:06 Condition: good 15:06 Discharge instructions given to patient, family, Instructed on discharge instructions, follow up and referral plans. Demonstrated understanding of instructions, follow-up care. 15:10 Patient left the ED. em Signatures: Dispatcher [employer] EDMS Twyla Huddleston, NATURAL SCIENCES MANAGER-C NATURAL SCIENCES MANAGER-Ckb Arlin Perez MathewsTrenton LVN LVN em Michelle Rae RN RN aa5 Eun Moeller la2 Corrections: (The following items were deleted from the chart) 12:48 12:47 CT completed. la2 la2
--- NOTE | 2018-05-24 14:38 | EDPHYS ---
Physician Documentation [facility] Name: Natali Sheridan Age: 32 yrs Sex: Female : 1985 Arrival Date: 05/24/2018 Time: 12:01 Bed 18 Private MD: None, None ED Physician El Nails HPI: 05/24 12:30 This 32 yrs old Female presents to ER via Ambulatory with complaints of Sore kb Throat. 12:30 The patient presents with sore throat. The patient describes throat pain as constant. kb Onset: The symptoms/episode began/occurred 3 day(s) ago. Severity of symptoms: At their worst the symptoms were moderate, in the emergency department the symptoms are unchanged. Modifying factors: The symptoms are alleviated by nothing, the symptoms are aggravated by swallowing. Associated signs and symptoms: Pertinent positives: earache, fever, Sore throat. The patient has not experienced similar symptoms in the past. The patient has been recently seen at the [facility] Emergency Department, this week, for similar complaints labs were performed, was given a prescription for antibiotics, was given a prescription for pain medications. 12:32 Pt states she was seen for ear and throat pain 2 days ago. States she thought it was an kb ear infection and that is what she was diagnosed with, but the antibiotics and pain medication aren't working. States it feels like there is something stuck in her throat. Pain on the left side that goes up to ear. . 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 - Ebola Screening: : No symptoms or risks identified at this time. - Social history:: Smoking status: Patient/guardian denies using tobacco. ROS: 12:32 Cardiovascular: Negative for chest pain, palpitations, and edema, Respiratory: Negative kb for shortness of breath, cough, wheezing, and pleuritic chest pain, Abdomen/GI: Negative for abdominal pain, nausea, vomiting, diarrhea, and constipation, Back: Negative for injury and pain, : Negative for injury, bleeding, discharge, and swelling, MS/Extremity: Negative for injury and deformity, Skin: Negative for injury, rash, and discoloration, Neuro: Negative for headache, weakness, numbness, tingling, and seizure. 12:32 Constitutional: Positive for fever, Negative for body aches, chills, fatigue, malaise, poor PO intake, weight loss. 12:32 ENT: Positive for ear pain, sore throat. Exam: 12:32 Constitutional: This is a well developed, well nourished patient who is awake, alert, kb and in no acute distress. Head/Face: Normocephalic, atraumatic. Chest/axilla: Normal chest wall appearance and motion. Nontender with no deformity. No lesions are appreciated. Cardiovascular: Regular rate and rhythm with a normal S1 and S2. No gallops, murmurs, or rubs. Normal PMI, no JVD. No pulse deficits. Respiratory: Lungs have equal breath sounds bilaterally, clear to auscultation and percussion. No rales, rhonchi or wheezes noted. No increased work of breathing, no retractions or nasal flaring. Abdomen/GI: Soft, non-tender, with normal bowel sounds. No distension or tympany. No guarding or rebound. No evidence of tenderness throughout. Skin: Warm, dry with normal turgor. Normal color with no rashes, no lesions, and no evidence of cellulitis. MS/ Extremity: Pulses equal, no cyanosis. Neurovascular intact. Full, normal range of motion. Neuro: Awake and alert, GCS 15, oriented to person, place, time, and situation. Cranial nerves II-XII grossly intact. Motor strength 5/5 in all extremities. Sensory grossly intact. Cerebellar exam normal. Normal gait. 12:32 ENT: External ear(s): are unremarkable, Ear canal(s): are normal, TM's: erythema, that is moderate, on the left, Examination of the other ear shows no obvious abnormality, Posterior pharynx: Airway: normal, no evidence of obstruction, Tonsils: are normal in appearance, Uvula: normal, midline, erythema, that is moderate. Vital Signs: 12:06 BP 157 / 101; Pulse 85; Resp 16 S; Temp 98.8(O); Pulse Ox 97% on R/A; aa5 13:10 BP 147 / 93; Pulse 78; Resp 16; Pulse Ox 97% on R/A; em 15:07 BP 144 / 97; Pulse 75; Resp 16; Pulse Ox 98% on R/A; Pain 6/10; em MDM: 12:08 Patient medically screened. kb 12:33 Data reviewed: vital signs, nurses notes. Data interpreted: Pulse oximetry: on room air kb is 97 %. Interpretation: normal. 13:44 Counseling: I had a detailed discussion with the patient and/or guardian regarding: the kb historical points, exam findings, and any diagnostic results supporting the discharge/admit diagnosis, radiology results, the need for outpatient follow up, a family practitioner, to return to the emergency department if symptoms worsen or persist or if there are any questions or concerns that arise at home. 05/24 12:57 Order name: Urine Dipstick--Ancillary (enter results); Complete Time: 13:14 bd 05/24 12:57 Order name: Urine --Ancillary (enter results); Complete Time: 13:14 bd 05/24 12:18 Order name: Neck Soft Tissue XRAY; Complete Time: 13:19 kb Administered Medications: 12:37 Drug: TORadol 60 mg Route: IM; Site: right gluteus; em 15:08 Follow up: Response: No adverse reaction; Pain is decreased em 14:21 Drug: GI Cocktail without - (Maalox Suspension 30 ml, Lidocaine Liquid 2 % 15 em ml) Route: PO; 15:08 Follow up: Response: No adverse reaction; Pain is decreased em Disposition: 16:12 Co-signature as Attending Physician, El Nails MD. Disposition: 05/24/18 14:37 Discharged to Home. Impression: Pain in throat, Otitis media, unspecified, left ear. - Condition is Stable. - Discharge Instructions: Otitis Media, Adult, [id number], Sore Throat, [id number]. - Medication Reconciliation Form, Thank You Letter, Antibiotic Education, Prescription Opioid Use form. - Follow up: Emergency Department; When: As needed; Reason: Worsening of condition. Follow up: Private Physician; When: 2 - 3 days; Reason: Recheck today's complaints, Continuance of care, Re-evaluation by your physician. Signatures: Dispatcher [employer] Twyla Barnett, KAR-C BARIATRIC PHYSICIAN-Trenton Nelson, CAPACITY MANAGEMENT SPECIALIST CAPACITY MANAGEMENT SPECIALIST Michelle Gutierrez, RN RN aa5 El Nails MD MD gs Corrections: (The following items were deleted from the chart) 15:10 14:37 05/24/2018 14:37 Discharged to Home. Impression: Pain in throat; Otitis media, em unspecified, left ear. Condition is Stable. Discharge Instructions: Otitis Media, Adult, [id number], Sore Throat, [id number]. Forms are Medication Reconciliation Form, Thank You Letter, Antibiotic Education, Prescription Opioid Use. Follow up: Emergency Department; When: As needed; Reason: Worsening of condition. Follow up: Private Physician; When: 2 - 3 days; Reason: Recheck today's complaints, Continuance of care, Re-evaluation by your physician. kb
[2018-05-24 15:14] VITALS: TEMP 98.8
[2018-05-24 15:17] VITALS: BP 144/97; O2SAT 98
== END 2018-05-24 15:10 | disposition home or self-care (01) ==
LOC: ER 11:59
DX: R07.0 Pain in throat (principal); H66.92 Otitis media, unspecified, left ear; Z88.1 Allergy status to other antibiotic agents; I10 Essential (primary) hypertension
CPT/HCPCS: 70360; 81003; 81025; 96372; 99283